=== PATIENT | male | born 1980 | race Caucasian/White ===

== ENCOUNTER 2025-08-29 22:12 | Emergency (ER) | payer BC, SELFPAY ==
--- OUTSIDE RECORDS SUMMARY | 2002-07-15 03:00 | XMS_ITS | Continuity of Care Document ---
Author Organization [facility] Address [address] [facility] [address] [place] [address] Phone Care Team Providers Care Corporate Legal Intern Name Role Phone Zenon Meyer DO Unavailable Unavailable Advance Directives Directive Yes / No Effective Date File Name No Information Encounters Encounter Description Practice Location Reason(s) For Visit Diagnoses Date Provider Providers Copied on Encounter [facility], [address], [place], [place], [id number], tel:[phone] [facility] No Information 2 Mitch Kowalski. [address] [place], [address], . tel: [phone] Referring Provider: Tyrell Mosley OD, [address] [place], [address]. tel:[phone] Family History Family Member Type Diagnosis Age At Onset No Information Payers Payer name Insurance type Covered libertarian ID Authoriza tion(s) No Information Social History Type Description Quantity Date Captured Comments Sex Male Smoking Status No Information Chief Complaint And Reason For Visit No Information Reason For Referral Reason For Referral No Information History Of Present Illness Encounter Date Complaint History Of Prese nt Illness No Information Functional Status Date Functional Assessmen t No Information Instructions Date Instruction Additional Infor mation No Information Assessments Type Assessment Date No Information Patient Care Teams Name Effective Dates (start - stop) Status Members No Information
--- OUTSIDE RECORDS SUMMARY | 2017-09-10 04:20 | XMS_ITS | Continuity of Care Document ---
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 Name Role Phone Prashant BUI, Cady Unavailable Unavailabl e Medications Medication Instructions Dosage Effective Dates (start - stop) Status Comments Patanase 0.6 % nasal spray spray 2 spray by intranasal route 2 times every day in each nostril - Active Any 180 mg tablet take 1 tablet (180 MG) by oral route every day - Active Procedures Procedure Date OFFICE/OUTPATIENT VISIT EST OFFICE/OUTPATIENT VISIT EST Advance Directives Directive Yes / No Effective Date File Name No Information Encounters Encounter Description Practice Location Reason(s) For Visit Diagnoses Date Provider Providers Copied on Encounter [facility], [address], [place], [address], tel:[phone] [facility] No Information 7 Prashant Hamsa. [address], [place], [place], [id number]. tel:[phone] [facility], [address], [place], [address], [place] tel:[phone] [facility] No Information 4 Prashant Hamsa. [address], [place], [place], [id number]. tel:[phone] OFFICE/OUTPAT IENT VISIT EST [facility], [address], [place], [address], [place] tel:[phone] [facility] Follow Up of for food allergies (chief complaint) Urinary frequency 4 Prashant Hamsa. [address], [place], [place], [id number]. tel:[phone] OFFICE/OUTPAT IENT VISIT EST [facility], [address] [facility] [address], [place], [address], [place] tel:[phone] [facility] follow up (chief complaint) Other adverse food reactions, not elsewhere classified 2 Prashant Hamsa. [address] [facility] [address], [place], [place], [id number]. tel:[phone] [facility], [address] [facility] [address], [place], [address], tel:[phone] [facility] food allergies (chief complaint) Other adverse food reactions, not elsewhere classified 2 Prashant Hamsa. [address], [place], [place], [id number]. tel:[phone] Family History Family Member Type Diagnosis Age At Onset No Information Payers Payer name Insurance type Covered green party ID Authoriza tion(s) No Information Social History Type Description Quantity Date Captured Comments Sex Male Smoking Status No Information Chief Complaint And Reason For Visit No Information Reason For Referral Reason For Referral No Information History Of Present Illness Encounter Date Complaint History Of Prese nt Illness Follow Up of for food allergies Gary is here for a very different issu, he has stopped dairy and nut , has not eaten dairy and consumes soy and almond milk is fine, cannot eat physically cannot eat nuts -one year ago, he started having bladder issues -he has frequency and urgency ,he saw an urologist- meds did not help, he had dry mouth - vesicare and similar meds did not help at all, he is undergoing physical therapy , for the past 3 months , that has helped some ,he still has frequent urination , control is better,he has no nocturia , he feels it is worse on mondays and is not sure if it is stress, -he drinks -2 beers on a week end , not every week end- he does a lot of cycling ,he drinks a lot of water while cycling , - sexually he has no issues - he does not drink caffeine or soda- water , gatorade , and nuun tablets which have electorlytes in them, he eats mozerella cheese and gets a little - gas GI is finenot constipated spine is not an issue- he etsa very little salt in his diet -He tried a glutean free diet and that did not help He takes no supplements He takes any Functional Status Date Functional Assessmen t No Information Instructions Date Instruction Additional Infor mation No Information Assessments Type Assessment Date No Information Patient Care Teams Name Effective Dates (start - stop) Status Members No Information
[2025-08-29] VITALS (11 sets, daily range): BP systolic 105–123; BP diastolic 43–61; PULSE 49–73; RESP 16–23; TEMP 36.7; O2SAT 100
--- NOTE | ~2025-08-29 | XR_ITS ---
Examination: XR chest 2V Clinical History: syncope Comparison: None Technique: PA and Lateral Findings: Cardiomediastinal silhouette normal size and configuration. Lungs clear. No acute bony abnormality. IMPRESSION: 1. No acute cardiopulmonary findings. Reviewed, dictated and finalized at location R.
--- NOTE | ~2025-08-29 | CT_ITS ---
EXAMINATION: CT brain wo con DATE: 08/29/2025 22:29 INDICATION: Syncope TECHNIQUE: Computed tomography (CT) of the head was performed without intravenous contrast. Sagittal and coronal reconstructions were performed. The mA was adjusted according to patient size. Iterative reconstruction technique was employed. The dose-length product was 681.00 mGy-cm. COMPARISON: None FINDINGS: No acute intracranial hemorrhage, acute infarction or abnormal extra axial fluid collection. Ventricles are normal and symmetric. No mass/mass effect. The orbits, paranasal sinuses and mastoid air cells are normal. IMPRESSION: 1. Normal head CT. Reviewed, dictated and finalized at location A. IMPRESSION: 1. Normal head CT.
--- NOTE | 2025-08-29 22:16 | ECG_ITS ---
Test Date: 2025-08-29 22:20:56 Measurements Intervals Henderson Rate: 51 P: 58 OR: 175 QRS: 12 QRSD: 82 T: 33 QT: 437 QTc: 404 Interpretive Statements SINUS BRADYCARDIA POSSIBLE LEFT ATRIAL ENLARGEMENT [-0.1mV P WAVE IN V1/V2] No previous ECG available for comparison Electronically Signed On 08-29-2025 22:24:17 CDT by Bailey Melendez M.D.
[2025-08-29] MEDS: LACTATED RINGERS 1,000 ML 999 ML IV CONT (22:41)
--- OUTSIDE RECORDS SUMMARY | 2025-08-29 22:43 | XMS_ITS | Clinical Summary ---
Author Organization [facility] Address [address] [place] [address] Care Team Providers Care Division Operations Manager Name Role Phone Saira Marcum MD Primary Care Provider Jeovanny Hooker DO Unavailable Allergies Active Allergy Reactions Criticality Noted Date Comments Dairy - All Forms And Ingredients Stomach upset Low 04/13/2024 Tree Pollen-Shagbark Hamblen Unknown 024 Medications escitalopram (LEXAPRO) 10 mg tablet Take 1 tablet (10 mg total) by mouth daily 12/01/2022 Active desmopressin (DDAVP) 0.1 mg tablet Take 1 tablet (100 mcg total) by mouth 3 (three) times a day 05/31/2023 Active Active Problems Problem Noted Date Diagnosed Date Hyperlipidemia 10/28/2022 Overactive bladder 10/28/2022 Increased frequency of urination 06/09/2014 Urinary urgency 06/09/2014 Headache 12/31/2013 Resolved Problems Problem Noted Date Diagnosed Date Resolved Date Ischial bursitis 09/03/2023 04/13/2024 Gastroesophageal reflux disease 09/02/2023 04/13/2024 Heartburn 04/27/2023 04/13/2024 Sleep disorder 09/24/2022 04/13/2024 Lesion of face 08/06/2022 04/13/2024 Posterior rhinorrhea 07/29/2022 024 Acute sinusitis 12/31/2013 04/13/2024 Immunizations Immunization Administration Dates Next Due Influenza, Quadrivalent, Laury l Culture-based MDCK, Preservative Free, Antibiotic Free, Intramuscular 09/21/2017 Influenza, Quadrivalent, Spl it, Preservative Free, Intramuscular 10/27/2020,09/27/2015 Surgical History Surgery Date Site/Laterality Comments EYE SURGERY took baseball to eye and had double vision. Needs corrected surgery. in 6 grade NASAL SEPTUM SURGERY for crooked septum Medical History Medical History Date Comments Personal history of other sp ecified conditions History of urinary frequency - (Added by TW Conv) Urgency of urination Urinary urg ency - (Added by TW Conv) Stress Chronic headaches Chickenpox Family History Medical History Relation Name Comments No Known Problems Father No Known Problems Mother Skin cancer Other Colon cancer Neg Hx Prostate cancer Neg Hx Relation Name Status Comments Father Mother Other Social History Tobacco Use Types Packs/Day Years Used Date Smoking Tobacco: Never Cigarettes Smokeless Tobacco: Never Tobacco Cessation:Counseling Given: Not Answered PHQ-2 Answer Date Recorded PHQ-2 Total Score (If total score is 3 or more points, staff should administer the PHQ-9) 0 04/13/2024 Sex and Gender Information Value Date Recorded Sex Assigned at Not on file Legal Sex Male 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 Gender Identity Not on file Sexual Orientation Not on file Obstetrics History Last Filed Vital Signs Vital Sign Reading Time Taken Comments Blood Pressure 104/67 11/10/2024 2:07 PM FORMING MACHINE UPKEEP MECHANIC HELPER Pulse 89 11/10/2024 2:07 PM FORMING MACHINE UPKEEP MECHANIC HELPER Temperature 36.6 C (97.8 F) 11/10/2024 2:07 PM FORMING MACHINE UPKEEP MECHANIC HELPER Respiratory Rate 18 11/10/2024 2:07 PM FORMING MACHINE UPKEEP MECHANIC HELPER Oxygen Saturation 99% 11/10/2024 2:07 PM FORMING MACHINE UPKEEP MECHANIC HELPER Inhaled Oxygen Concentration - - Weight 90.6 kg (199 lb 11.2 oz) 11/10/2024 2:07 PM FORMING MACHINE UPKEEP MECHANIC HELPER Height 177.8 cm (5' 10) 11/10/2024 2:07 PM FORMING MACHINE UPKEEP MECHANIC HELPER Body Mass Index 28.65 11/10/2024 2:07 PM FORMING MACHINE UPKEEP MECHANIC HELPER Plan of Treatment Health Maintenance Due Date Last Done Comments Colon Cancer Screening-Colonoscopy 1980 DTaP/Tdap/Td Vaccine (1 - Tdap) 1991 Hepatitis B Screening 1998 HPV Vaccines (1 - 3-dose SCD M series) 2007 Depression Screening 04/13/2025 04/13/2024 Regular Well Visit/Exam 18-64 04/13/2025 04/13/2024 Covid-19 Vaccine (2024-2 6 season) 2025 04/22/2022, 09/03/2021, 08/13/2021 Influenza Vaccine (#1) 2025 , 09/21/2017, 09/27/2015 Hepatitis C Screening Completed 08/16/2024 Pneumococcal vaccine <65 Aged Out No longer eligible based on patient's age to complete this topic Procedures Procedure Name Priority Date/Time Associated Diagnosis Comments HEPATITIS C ANTIBODY Routine 08/16/2024 9:12 AM CDT Encounter for hepatitis C screening test for low risk patient Routine general medical examination at a health care facility from Last 3 Months or Most Recently Relevant to Health Maintenance Results * Hepatitis C antibody Blood (08/16/2024 9:12 AM CDT) Hep C Ab Non Reactive Non Reactive [facility] - 01 Comment: HCV antibody alone does not differentiate between previously resolved infection and active infection. Equivocal and Reactive HCV antibody results should be followed up with an HCV RNA test to support the diagnosis of active HCV infection. Blood 08/16/2024 9:12 AM CDT 08/16/2024 Narrative [facility] - 08/17/2024 5:08 AM CDT Performed at: [address] [place] [id number] Foot Specialist: Gabriel Henry PhD, Phone: [phone] us Saira Marcum MD LAB MICROBIOLOGY - GEN ERAL ORDERABLES Final Result [facility] - 01 from Last 3 Months or Most Recently Relevant to Health Maintenance Insurance [employer] [facility] Care Teams Division Operations Manager Relationship Specialty Start Date End Date Saira Marcum MD PCP - General Family Medicine 04/13/24 Jeovanny Hooker DO [address] [place] [id number] Referring Physician Internal Medicine 04/13/24
--- OUTSIDE RECORDS SUMMARY | 2025-08-29 22:44 | XMS_ITS | Data Portability ---
Author Organization [facility], Main Office Address [address] [place] [address] Assessment No assessment recorded. Plan of Treatment Reminders Order Date Submit Date Provider Last Modified By Organization Details Last Modified Time Details Appointments None recorded. Lab None recorded. Referral None recorded. Procedures None recorded. Surgeries None recorded. Imaging None recorded. Medication Orders Medrol (Paulo) 4 mg tablets in a dose pack 023 023 [id number], [address] [place], [place], [id number], 3 15:56:26 Patient TargetsNo targets recorded. Patient InstructionsNo instructions recorded. Reason for Referral None Reported. Results Created Date Observation Date Name Description Value Unit Range Abnormal Flag Note LastModifiedBy Organization Detail LastModifiedTime 01/05/20 22 01/06/2022 PSA (SERI AL MONIT OR) prostate specific Ag 0.5 NG/mL 0.0-4. 0 Curtis ECLIA metho dolog y. Accor molly to the Ameri can [employer] g[employer] iatio n, Serum PSA shoul d decre ase and remai n at undet ectab le level s after radic al prost atect elizabet. The AUA defin es bioch emica l recur rence as an initi al PSA value 0.2 ng/mL or great er follo wed by a subse quent confi rmato ry PSA value 0.2 ng/mL or great er. Value s obtai malaika with diffe rent assay metho ds or kits canno t be used inter moy eably . Resul ts canno t be inter prete d as absol vanessa evide nce of the prese nce or absen ce of christiano pak se. Not Available [facility] ([facility]) [address] [facility], [place], [address], 01/08/2022 20:08:46 01/05/20 22 01/07/2022 PSA (SERI AL MONIT OR) pdf . Not Available [facility] ([facility]) [address] [facility], [place], [address], 01/08/2022 20:08:46 01/05/20 22 01/08/2022 A1C W/GLY COMAR K(R) REFLE X Hb A1C diabetic assessment 5.5 %Hb Note: A refle x test was order ed on this speci men. If A1c resul ts are betwe en a value of 6.0 to 8.0 (incl uding 6.0 and 8.0), Glyco Wily testi ng is perfo rmed. Glyco Wily refle cts post prand ial gluco se spike s from the past 2 weeks , where as A1c refle cts avera ge glyce misbah contr ol over the past 3 month s. Refer ence Range : Federica l: <5.7 Incre ased risk for diabe hayden: 5.7 - 6.4 Ongoi ng Hyper glyce conor: >6.4 Glyce misbah contr ol for adult s with diabe hayden: <7.0 (ADA) Not Available [facility] [address] [place], [address], 01/08/2022 20:08:45 01/05/20 22 01/08/2022 A1C W/GLY COMAR K(R) REFLE X estimated average glucose 111 mg/dL Not Available [facility] [address] [facility], [place], [address], 01/08/2022 20:08:45 01/05/20 22 01/08/2022 A1C W/GLY COMAR K(R) REFLE X glycomark(R) (1,5 Ag) tnp ug/mL Testi ng Not Indic ated Refle x not perfo rmed Glyco Wily( TM) is inten ded for use with manag ing glyce misbah contr ol in diabe tic patie nts. A low resul t corre spond s to high gluco se peaks . 1, 5-AG blood level s can be affec selina by clini jeremie condi tions or medic ation s. Pleas e refer to the direc tory of servi gopal or labco rp websi te test menu for detai led list of limit ation s. Not Available [facility] [address] [place], [address], 01/08/2022 20:08:45 01/05/20 22 01/06/2022 UA/M W/RFL X CULTU REFAVIAN NE specific gravity 1.010 1.005- 1.030 Not Available [facility] ([facility]) [address] [place], [address], 01/08/2022 20:08:45 01/05/20 22 01/06/2022 UA/M W/RFL X CULTU RE ROUTChristy NE pH 8.0 5.0-7. 5 above high normal Not Available [facility] ([facility]) [address] [place], [address], 01/08/2022 20:08:45 01/05/20 22 01/06/2022 UA/M W/RFL X CULTU REFAVIAN NE urine-color yellow yellow Not Available [facility] ([facility]) [address] [place], [address], 01/08/2022 20:08:45 01/05/20 22 01/06/2022 UA/M W/RFL X CULTU REFAVIAN NE appearance clear clear Not Available [facility] ([facility]) [address] [place], [address], 01/08/2022 20:08:45 01/05/20 22 01/06/2022 UA/M W/RFL X CULTU RE, ROUTI NE WBC esterase negati ve negati ve Not Available [facility] ([facility]) [address] [place], [address], 01/08/2022 20:08:45 01/05/20 22 01/06/2022 UA/M W/RFL X CULTU RE, ROUTI NE protein negati ve negati ve/tra ce Not Available [facility] ([facility]) [address] [place], [address], 01/08/2022 20:08:45 01/05/20 22 01/06/2022 UA/M W/RFL X CULTU RE, ROUTI NE glucose negati ve negati ve Not Available [facility] ([facility]) [address] [place], [address], 01/08/2022 20:08:45 01/05/20 22 01/06/2022 UA/M W/RFL X CULTU RE, ROUTI NE ketones negati ve negati ve Not Available [facility] ([facility]) [address] [place], [address], 01/08/2022 20:08:45 01/05/20 22 01/06/2022 UA/M W/RFL X CULTU RE, ROUTI NE occult blood negati ve negati ve Not Available [facility] ([facility]) [address] [place], [address], 01/08/2022 20:08:45 01/05/20 22 01/06/2022 UA/M W/RFL X CULTU RE, ROUTI NE bilirubin negati ve negati ve Not Available [facility] ([facility]) [address] [place], [address], 01/08/2022 20:08:45 01/05/20 22 01/06/2022 UA/M W/RFL X CULTU RE, ROUTI NE urobilinogen ,semi-qn 0.2 mg/dL 0.2-1. 0 Not Available [facility] ([facility]) [address] [facility], [place], [address], 01/08/2022 20:08:45 01/05/20 22 01/06/2022 UA/M W/RFL X CULTU RE, ROUTI NE nitrite, urine negati ve negati ve Not Available [facility] ([facility]) [address] [facility], [place], [address], 01/08/2022 20:08:45 01/05/20 22 01/06/2022 UA/M W/RFL X CULTU RE, ROUTI NE microscopic examination commen t Micro scopi c follo ws if indic ated. Not Available [facility] ([facility]) [address] [facility], [place], [address], 01/08/2022 20:08:45 01/05/20 22 01/06/2022 UA/M W/RFL X CULTU RE, ROUTI NE microscopic examination see below: Micro scopi c was indic ated and was perfo rmed. Not Available [facility] ([facility]) [address] [facility], [place], [address], 01/08/2022 20:08:45 01/05/20 22 01/06/2022 UA/M W/RFL X CULTU RE, ROUTI NE WBC none seen /hpf 0 - 5 Not Available [facility] ([facility]) [address] [facility], [place], [address], 01/08/2022 20:08:45 01/05/20 22 01/06/2022 UA/M W/RFL X CULTU RE, ROUTI NE RBC none seen /hpf 0 - 2 Not Available [facility] ([facility]) [address] [facility], [place], [address], 01/08/2022 20:08:45 01/05/20 22 01/06/2022 UA/M W/RFL X CULTU RE, ROUTI NE epithelial cells (non renal) none seen /hpf 0 - 10 Not Available [facility] ([facility]) [address] [facility], [place], [address], 01/08/2022 20:08:45 01/05/20 22 01/06/2022 UA/M W/RFL X CULTU RE, ROUTI NE epithelial cells (renal) inpatient care manager rn Not Available [facility] ([facility]) [address] [facility], [place], [address], 01/08/2022 20:08:45 01/05/20 22 01/06/2022 UA/M W/RFL X CULTU RE, ROUTI NE casts none seen /lpf none seen Not Available [facility] ([facility]) [address] [facility], [place], [address], 01/08/2022 20:08:45 01/05/20 22 01/06/2022 UA/M W/RFL X CULTU RE, ROUTI NE cast type inpatient care manager rn Not Available [facility] ([facility]) [address] [facility], [place], [address], 01/08/2022 20:08:45 01/05/20 22 01/06/2022 UA/M W/RFL X CULTU RE, ROUTI NE crystals inpatient care manager rn Not Available [facility] ([facility]) [address] [facility], [place], [address], 01/08/2022 20:08:45 01/05/20 22 01/06/2022 UA/M W/RFL X CULTU RE, ROUTI NE crystal type inpatient care manager rn Not Available [facility]) [address] [facility], [place], [address], 01/08/2022 20:08:45 01/05/20 22 01/06/2022 UA/M W/RFL X CULTU RE, ROUTI NE mucus threads inpatient care manager rn Not Available [facility] ([facility]) [address] [facility], [place], [address], 01/08/2022 20:08:45 01/05/20 22 01/06/2022 UA/M W/RFL X CULTU RE, ROUTI NE bacteria none seen none seen/f ew Not Available [facility] ([facility]) [address] [facility], [place], [address], 01/08/2022 20:08:45 01/05/20 22 01/06/2022 UA/M W/RFL X CULTU RE, ROUTI NE yeast inpatient care manager rn Not Available [facility] ([facility]) [address] [facility], [place], [address], 01/08/2022 20:08:45 01/05/20 22 01/06/2022 UA/M W/RFL X CULTU RE, ROUTI NE trichomonas inpatient care manager rn Not Available [facility] ([facility]) [address] [facility], [place], [address], 01/08/2022 20:08:45 01/05/20 22 01/06/2022 UA/M W/RFL X CULTU RE, ROUTI NE comment inpatient care manager rn Not Available [facility] ([facility]) [address] [facility], [place], [address], 01/08/2022 20:08:45 01/05/20 22 01/06/2022 UA/M W/RFL X CULTU RE, ROUTI NE urinalysis reflex commen t This speci men will not refle x to a Urine Cultu re. Not Available [facility] ([facility]) [address] [facility], [place], [address], 01/08/2022 20:08:45 01/05/20 22 01/06/2022 CMP14 +4AC glucose 91 mg/dL 65-99 Not Available [facility] ([facility]) [address] [facility], [place], [address], 01/08/2022 20:08:44 01/05/20 22 01/06/2022 CMP14 +4AC BUN 12 mg/dL 6-24 Not Available [facility] ([facility]) [address] [place], [address], 01/08/2022 20:08:44 01/05/20 22 01/06/2022 CMP14 +4AC creatinine 1.17 mg/dL 0.76-1 .27 Not Available [facility] ([facility]) [address] [place], [address], 01/08/2022 20:08:44 01/05/20 22 01/06/2022 CMP14 +4AC eGFR if nonafricn AM 77 mL/mi n/1.7 3 >59 Not Available [facility] ([facility]) [address] [place], [address], 01/08/2022 20:08:44 01/05/20 22 01/06/2022 CMP14 +4AC eGFR if africn AM 89 mL/mi n/1.7 3 >59 In accor dance with recom menda tions from the NKF-A SN Task force , Mat rp is in the proce ss of updat ing its eGFR calcu latio n to the 2020 CKD-E PI creat inine equat ion that estim ates kidne y funct ion witho ut a race varia ble. Not Available [facility] ([facility]) [address] [place], [address], 01/08/2022 20:08:44 01/05/20 22 01/06/2022 CMP14 +4AC sodium 139 mmol/ L 134-14 4 Not Available [facility] ([facility]) [address] [place], [address], 01/08/2022 20:08:44 01/05/20 22 01/06/2022 CMP14 +4AC potassium 4.7 mmol/ L 3.5-5. 2 Not Available [facility] ([facility]) [address] [place], [address], 01/08/2022 20:08:44 01/05/20 22 01/06/2022 CMP14 +4AC chloride 102 mmol/ L 96-106 Not Available [facility] ([facility]) [address] [facility], [place], [address], 01/08/2022 20:08:44 01/05/20 22 01/06/2022 CMP14 +4AC carbon dioxide, total 24 mmol/ L 20-29 Not Available [facility] ([facility]) [address] [facility] [place], [address], 01/08/2022 20:08:44 01/05/20 22 01/06/2022 CMP14 +4AC calcium 9.3 mg/dL 8.7-10 .2 Not Available [facility] ([facility]) [address] [place], [address], 01/08/2022 20:08:44 01/05/20 22 01/06/2022 CMP14 +4AC phosphorus 4.0 mg/dL 2.8-4. 1 Not Available [facility] ([facility]) [address] [facility], [place], [address], 01/08/2022 20:08:44 01/05/20 22 01/06/2022 CMP14 +4AC protein, total 6.7 g/dL 6.0-8. 5 Not Available [facility] ([facility]) [address] [place], [address], 01/08/2022 20:08:44 01/05/20 22 01/06/2022 CMP14 +4AC albumin 4.5 g/dL 4.0-5. 0 Not Available [facility] ([facility]) [address] [facility], [place], [address], 01/08/2022 20:08:44 01/05/20 22 01/06/2022 CMP14 +4AC bilirubin, total 0.8 mg/dL 0.0-1. 2 Not Available [facility] ([facility]) [address] [place], [address], 01/08/2022 20:08:44 01/05/20 22 01/06/2022 CMP14 +4AC alkaline phosphatase 52 IU/L 44-121 Not Available [facility]) [address] [place], [address], 01/08/2022 20:08:44 01/05/20 22 01/06/2022 CMP14 +4AC LDH 164 IU/L 121-22 4 Not Available [facility] ([facility]) [address] [place], [address], 01/08/2022 20:08:44 01/05/20 22 01/06/2022 CMP14 +4AC AST (SGOT) 19 IU/L 0-40 Not Available [facility] ([facility]) [address] [place], [address], 01/08/2022 20:08:44 01/05/20 22 01/06/2022 CMP14 +4AC ALT (SGPT) 12 IU/L 0-44 Not Available [facility] ([facility]) [address] [place], [address], 01/08/2022 20:08:44 01/05/20 22 01/06/2022 CMP14 +4AC GGT 12 IU/L 0-65 Not Available [facility] ([facility]) [address] [place], [address], 01/08/2022 20:08:44 01/05/20 22 01/06/2022 CBC WITH DIFFE RENTI AL/PL ATELE T WBC 4.2 x10e3 /uL 3.4-10 .8 Not Available [facility] ([facility]) [address] [place], [address], 01/08/2022 20:08:44 01/05/20 22 01/06/2022 CBC WITH DIFFE RENTI AL/PL ATELE T RBC 4.71 x10e6 /uL 4.14-5 .80 Not Available [facility] ([facility]) [address] [place], [address], 01/08/2022 20:08:44 01/05/20 22 01/06/2022 CBC WITH DIFFE RENTI AL/PL ATELE T hemoglobin 14.8 g/dL 13.0-1 7.7 Not Available [facility] ([facility]) [address] [place], [address], 01/08/2022 20:08:44 01/05/20 22 01/06/2022 CBC WITH DIFFE RENTI AL/PL ATELE T hematocrit 43.5 % 37.5-5 1.0 Not Available [facility] ([facility]) [address] [facility], [place], [address], 01/08/2022 20:08:44 01/05/20 22 01/06/2022 CBC WITH DIFFE RENTI AL/PL ATELE T MCV 92 fL 79-97 Not Available [facility] ([facility]) [address] [place], [address], 01/08/2022 20:08:44 01/05/20 22 01/06/2022 CBC WITH DIFFE RENTI AL/PL ATELE T MCH 31.4 pg 26.6-3 3.0 Not Available [facility] ([facility]) [address] [place], [address], 01/08/2022 20:08:44 01/05/20 22 01/06/2022 CBC WITH DIFFE RENTI AL/PL ATELE T MCHC 34.0 g/dL 31.5-3 5.7 Not Available [facility] ([facility]) [address] [place], [address], 01/08/2022 20:08:44 01/05/20 22 01/06/2022 CBC WITH DIFFE RENTI AL/PL ATELE T RDW 12.5 % 11.6-1 5.4 Not Available [facility] ([facility]) [address] [facility], [place], [address], 01/08/2022 20:08:44 01/05/20 22 01/06/2022 CBC WITH DIFFE RENTI AL/PL ATELE T platelets 317 x10e3 /uL 150-45 0 Not Available [facility] ([facility]) [address] [facility], [place], [address], 01/08/2022 20:08:44 01/05/20 22 01/06/2022 CBC WITH DIFFE RENTI AL/PL ATELE T neutrophils 56 % not estab. Not Available [facility] ([facility]) [address] [facility], [place], [address], 01/08/2022 20:08:44 01/05/20 22 01/06/2022 CBC WITH DIFFE RENTI AL/PL ATELE T lymphs 28 % not estab. Not Available [facility] ([facility]) [address] [facility], [place], [address], 01/08/2022 20:08:44 01/05/20 22 01/06/2022 CBC WITH DIFFE RENTI AL/PL ATELE T monocytes 10 % not estab. Not Available [facility] ([facility]) [address] [facility], [place], [address], 01/08/2022 20:08:44 01/05/20 22 01/06/2022 CBC WITH DIFFE RENTI AL/PL ATELE T eos 4 % not estab. Not Available [facility] ([facility]) [address] [facility], [place], [address], 01/08/2022 20:08:44 01/05/20 22 01/06/2022 CBC WITH DIFFE RENTI AL/PL ATELE T basos 2 % not estab. Not Available [facility] ([facility]) [address] [place], [address], 01/08/2022 20:08:44 01/05/20 22 01/06/2022 CBC WITH DIFFE RENTI AL/PL ATELE T immature cells inpatient care manager rn Not Available [facility] ([facility]) [address] [facility], [place], [address], 01/08/2022 20:08:44 01/05/20 22 01/06/2022 CBC WITH DIFFE RENTI AL/PL ATELE T neutrophils (absolute) 2.4 x10e3 /uL 1.4-7. 0 Not Available [facility] ([facility]) [address] [facility], [place], [address], 01/08/2022 20:08:44 01/05/20 22 01/06/2022 CBC WITH DIFFE RENTI AL/PL ATELE T lymphs (absolute) 1.2 x10e3 /uL 0.7-3. 1 Not Available [facility] ([facility]) [address] [place], [address], 01/08/2022 20:08:44 01/05/20 22 01/06/2022 CBC WITH DIFFE RENTI AL/PL ATELE T monocytes(ab solute) 0.4 x10e3 /uL 0.1-0. 9 Not Available [facility] ([facility]) [address] [place], [address], 01/08/2022 20:08:44 01/05/20 22 01/06/2022 CBC WITH DIFFE RENTI AL/PL ATELE T eos (absolute) 0.2 x10e3 /uL 0.0-0. 4 Not Available [facility] ([facility]) [address] [place], [address], 01/08/2022 20:08:44 01/05/20 22 01/06/2022 CBC WITH DIFFE RENTI AL/PL ATELE T baso (absolute) 0.1 x10e3 /uL 0.0-0. 2 Not Available [facility] ([facility]) [address] [facility], [place], [address], 01/08/2022 20:08:44 01/05/20 22 01/06/2022 CBC WITH DIFFE RENTI AL/PL ATELE T immature granulocytes 0 % not estab. Not Available [facility] ([facility]) [address] [facility], [place], [address], 01/08/2022 20:08:44 01/05/20 22 01/06/2022 CBC WITH DIFFE RENTI AL/PL ATELE T immature grans (abs) 0.0 x10e3 /uL 0.0-0. 1 Not Available [facility] ([facility]) [address] [facility], [place], [address], 01/08/2022 20:08:44 01/05/20 22 01/06/2022 CBC WITH DIFFE RENTI AL/PL ATELE T NRBC inpatient care manager rn Not Available [facility] ([facility]) [address] [place], [address], 01/08/2022 20:08:44 01/05/20 22 01/06/2022 CBC WITH DIFFE RENTI AL/PL ATELE T hematology comments: inpatient care manager rn Not Available [facility] ([facility]) [address] [place], [address], 01/08/2022 20:08:44 01/05/20 22 01/06/2022 LP+LD L DIREC T+DLD L/HDL RATIO cholesterol, total 196 mg/dL 100-19 9 Not Available [facility] ([facility]) [address] [place], [address], 01/08/2022 20:08:43 01/05/20 22 01/06/2022 LP+LD L DIREC T+DLD L/HDL RATIO triglyceride s 84 mg/dL 0-149 Not Available [facility] ([facility]) [address] [place], [address], 01/08/2022 20:08:43 01/05/20 22 01/06/2022 LP+LD L DIREC T+DLD L/HDL RATIO HDL cholesterol 48 mg/dL >39 Not Available [facility] ([facility]) [address] [place], [address], 01/08/2022 20:08:43 01/05/20 22 01/06/2022 LP+LD L DIREC T+DLD L/HDL RATIO VLDL cholesterol jeremie 15 mg/dL 5-40 Not Available [facility] ([facility]) [address] [place], [address], 01/08/2022 20:08:43 01/05/20 22 01/06/2022 LP+LD L DIREC T+DLD L/HDL RATIO LDL chol calc (nih) 133 mg/dL 0-99 above high normal Not Available [facility] ([facility]) [address] [place], [address], 01/08/2022 20:08:43 01/05/20 22 01/06/2022 LP+LD L DIREC T+DLD L/HDL RATIO comment: inpatient care manager rn Not Available [facility] ([facility]) [address] [place], [address], 01/08/2022 20:08:43 01/05/20 22 01/06/2022 LP+LD L DIREC T+DLD L/HDL RATIO LDL chol. (direct) 131 mg/dL 0-99 above high normal Not Available [facility] ([facility]) [address] [place], [address], 01/08/2022 20:08:43 01/05/20 22 01/06/2022 LP+LD L DIREC T+DLD L/HDL RATIO LDL (dir.)/HDL ratio 2.7 ratio 0.0-3. 6 LDL/H DL Men Women 1/2 Avg.R isk 1.0 1.5 Avg.R isk 3.6 3.2 2X Avg.R isk 6.3 5.0 3X Avg.R isk 8.0 6.1 Not Available [facility] ([facility]) [address] [facility], [place], [address], 01/08/2022 20:08:43 07/29/20 22 07/29/2022 rapid strep group A, throa t STREP A negati ve Not Available [id number] [place] [address], [place], [address], 07/29/2022 10:34:51 12/26/19 23 12/10/2022 home sleep study No observ ation record ed. [id number] [facility] [address], [place], [address], 01/30/2023 00:06:43 Result Notes None recorded. Problems Name Problem SNOMED Code Status Onset Date Resolution Date Notes Provider Name and Address Organization Details Recorded Time Acute sinusitis 19068922 Active 2021 Not Available [facility] 3 00:05:36 Acute pharyngitis 469447044 Active 2021 Not Available [facility] 3 00:05:36 Posterior rhinorrhea 61863806 Active 2021 Not Available [facility] 3 00:05:36 Lesion of face 109078517 Active 2021 Not Available [facility] 3 00:05:37 Sleep disorder 38568095 Active 2021 Not Available [facility] 3 00:05:36 Headache 12401949 Active 2021 Not Available [facility] 3 00:05:36 Hyperlipidemi a 19134389 Active 2021 NEWTON Montes null, [place] [facility] [place] [facility] 3 16:26:10 Overactive urinary bladder 280392180 Active 2021 Not Available [facility] 00:05:37 Heartburn 82568760 Active 2022 ADRIÁN Kim [address] [facility], [place] [address], [place], [address] , [facility] [employer] [facility] 3 21:21:19 Gastroesophag eal reflux disease 458432090 Active 2022 NEWTON Montes null, [facility] [employer] 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 3 15:56:16 Problem Notes None recorded. Procedures Surgical History Date Name Laterality Status Provider Name and Address Organization Details Recorded Time ENT Surgery completed NEWTON Montes [place] [facility] [place] [facility] 04/22/2023 16:16:19 other completed Not Available [facility] 01/2023 00:04:49 Eye Surgery completed Not Available [facility] 01/30/2023 00:04:49 Imaging Results None recorded. Procedure Notes None recorded. Medical Equipment None Reported. Allergies No known drug allergies Medications Name Sig Start Date Stop Date Status Note LastModified by Organization Details LastModified Time doxycycline hyclate 100 mg capsule TAKE 1 CAPSULE BY MOUTH TWICE DAILY EVERY DAY FOR 10 DAYS 07/26 completed Not Available Not Available Not Available azithromyci n 250 mg tablet TAKE 2 TABLETS (500 MG) BY ORAL ROUTE ONCE DAILY FOR 1 DAY THEN 1 TABLET (250 MG) BY ORAL ROUTE ONCE DAILY FOR 4 DAYS active Not Available Not Available No t Available liothyronin e 25 mcg tablet TAKE 1/2 TABLET BY MOUTH EVERY MORNING AND 1/2 TABLET EVERY DAY AT 3 PM 07/29 completed Not Available Not Available Not Available fluconazole 200 mg tablet TAKE 1 TABLET BY MOUTH EVERY DAY 10/28 completed Not Available Not Available Not Available ondansetron HCl 4 mg tablet TAKE 1 TO 2 TABLETS BY MOUTH EVERY 6 HOURS NEEDED FOR NAUSEA 04/22 completed Not Available Not Available Not Available prednisone 20 mg tablet TAKE 2 TABLETS BY MOUTH EVERY MORNING FOR 7 DAYS 07/26 completed Not Available Not Available Not Available sulfamethox azole 800 mg-trimetho prim 160 mg tablet TAKE 1 TABLET BY MOUTH TWICE DAILY 04/21 completed Not Available Not Available Not Available amoxicillin 875 mg tablet TAKE 1 TABLET BY MOUTH TWICE DAILY 04/21 completed Not Available Not Available Not Available pantoprazol e 40 mg tablet,maryanne yed release TAKE 1 TABLET BY MOUTH EVERY 12 HOURS FOR 14 DAYS active Not Available Not Available No t Available mupirocin 2 % topical ointment APPLY A SMALL AMOUNT TOPICALLY TO AFFECTED AREAS OF FACE/CHIN THREE TIMES DAILY active Not Available Not Available No t Available azelastine 137 mcg (0.1 %) nasal spray USE 1 TO 2 SPRAYS IN EACH NOSTRIL EVERY DAY 10/28 completed Not Available Not Available Not Available cefuroxime axetil 500 mg tablet Take 1 tablet every 12 hours by oral route. active Not Available Not Available No t Available methylpredn isolone 4 mg tablets in a dose pack FOLLOW PACKAGE DIRECTION S active Not Available Not Available No t Available fluticasone propionate 50 mcg/actuati on nasal spray,suspe nsion SHAKE LIQUID AND USE 1 TO 2 SPRAYS IN EACH NOSTRIL EVERY DAY 10/28 completed Not Available Not Available Not Available doxycycline hyclate 100 mg tablet TAKE 1 TABLET BY MOUTH TWICE DAILY 04/21 completed Not Available Not Available Not Available amoxicillin 875 mg-potassiu m clavulanate 125 mg tablet TAKE 1 TABLET BY MOUTH TWICE DAILY 10/29 completed Not Available Not Available Not Available desmopressi n 0.1 mg tablet TAKE 1 TABLET BY MOUTH THREE TIMES DAILY active Not Available Not Available No t Available escitalopra m 10 mg tablet TAKE 1 TABLET BY MOUTH EVERY DAY active Not Available Not Available No t Available escitalopra m 20 mg tablet TAKE 1 TABLET BY MOUTH DAILY 10/28 completed Not Available Not Available Not Available Any Allergy 04/22 completed Not Available Not Available Not Available ID NOW COVID-19 Test Kit TEST DIRECTED TODAY 04/21 completed Not Available Not Available Not Available Vitals Date Recorded Body height Body temperature Body mass index (BMI) Body weight Respiratory rate Oxygen saturation Oxygen saturation in Arterial blood by Pulse oximetry Heart rate Systolic And Diastolic Provider Name and Address Organization Details Last Updated DateTime 3 180.34 cm 98.4 [degF] 27.6 kg/m2 00048.2 9 g 16 /min 98 % 98 % 59 /min 110/72 mm[Hg] NEWTON Montes [facility] [employer] [facility] 3 16:16:54 Date Recorded Body mass index (BMI) Body height Oxygen saturation Oxygen saturation in Arterial blood by Pulse oximetry Heart rate Respiratory rate Body temperature Body weight Provider Name and Address Organization Details Last Updated DateTime 2 28.8 kg/m2 180.34 cm 97 % 97 % 58 /min 16 /min 97.8 [degF] 01162.7 5 g Not Available [facility] 3 00:05:04 Date Recorded Body height Body temperature Body mass index (BMI) Body weight Heart rate Oxygen saturation Oxygen saturation in Arterial blood by Pulse oximetry Systolic And Diastolic Provider Name and Address Organization Details Last Updated DateTime 3 180.34 cm 97.3 [degF] 27.5 kg/m2 12588.7 g 64 /min 98 % 98 % 118/70 mm[Hg] Zunilda Muller RN [facility] [employer] [facility] 3 15:26:18 Date Recorded Body height Oxygen saturation Oxygen saturation in Arterial blood by Pulse oximetry Heart rate Body temperature Body weight Systolic And Diastolic Provider Name and Address Organization Details Last Updated DateTime 2 180.34 cm 99 % 99 % 63 /min 99 [degF] 61262.4 7 g 118/66 mm[Hg] Not Available [facility] 3 00:05:03 Date Recorded Body mass index (BMI) Body height Oxygen saturation Oxygen saturation in Arterial blood by Pulse oximetry Heart rate Body temperature Body weight Systolic And Diastolic Provider Name and Address Organization Details Last Updated DateTime 1 27.7 kg/m2 180.34 cm 98 % 98 % 80 /min 97.8 [degF] 12292.4 4 g 110/70 mm[Hg] Not Available [facility] 3 00:05:03 Social History Question Answer Notes LastModified by Organizat ion Details LastModified Time Tobacco Smoking Status Never Smoker [place], [place] [facility] 09/03/2023 15:11:43 Do You Have An Advance Directive? Yes [id number] Information not available 01/30/2023 Do You Wear A Helmet When Biking? Yes [email or web address] Information not available 09/03/2023 What Is Your Level Of Caffeine Consumption? None [id number] Information not available 01/30/2023 In The 14 Days Before Symptom Onset, Have You Had Close Contact With A Laboratory-confirm ed COVID-19 While That Case Was Ill? No [email or web address] Information n ot available 09/03/2023 In The 14 Days Before Symptom Onset, Have You Had Close Contact With A Person Who Is Under Investigation For COVID-19 While That Person Was Ill? No [email or web address] Information not available 09/03/2023 What Type Of Diet Are You Following? REGULAR [id number] Information not available 01/30/2023 What Is The Highest Grade Or Level Of School You Have Completed Or The Highest Degree You Have Received? [id number] [email or web address] Information not available 09/03/2023 Have There Been Any Changes To Your Family Or Social Situation? No [email or web address] Information no t available 09/03/2023 Are There Any Guns Present In Your Home? Yes [email or web address] Information not available 09/03/2023 Do You Use Insect Repellent Routinely? Yes [email or web address] Information not available 09/03/2023 Have You Ever Been Counseled For Unhealthy Alcohol Use? No [email or web address] Information not available 09/03/2023 Do You Have Any Pets? Yes Information not available 09/03/2023 What Is Your Relationship Status? [id number] Information not available 01/30/2023 Do You Use Your Seat Belt Or Car Seat Routinely? Yes [email or web address] Information not available 09/03/2023 Do You Have Smoke And Carbon Monoxide Detectors In Your Home? Yes [email or web address] Information not available 09/03/2023 Are You Passively Exposed To Smoke? No [email or web address] Information no t available 09/03/2023 Are There Any Smokers In Your House? No [email or web address] Information not available 09/03/2023 Do You Use Sunscreen Routinely? Yes [email or web address] Information not available 09/03/2023 Has Tobacco Cessation Counseling Been Provided? No [email or web address] Information not available 09/03/2023 Have You Recently Traveled Abroad? No [email or web address] Information not available 09/03/2023 Do You Have Any Dietary Restrictions? No [email or web address] Information not available 09/03/2023 Sex: Male Functional Status Question Answer Note LastModified by Organizat ion Details LastModified Time Do you use any illicit or recreational drugs? No [email or web address] Information not available 09/03/2023 Do you or have you ever used any other forms of tobacco or nicotine? No [email or web address] Information not available 09/03/2023 What is your level of alcohol consumption? Occasional [id number] Information not available 01/30/2023 Are you currently employed? Yes [email or web address] Information not available 09/03/2023 What is your occupation? [employer] [email or web address] Information not available 09/03/2023 What is your exercise level? Moderate [id number] Information not available 01/30/2023 Mental Status Question Answer Note LastModified by Organization D etails LastModified Time Do you feel stressed (tense, restless, nervous, or anxious, or unable to sleep at night)? [id number] [email or web address] Information not available 09/03/2023 Family History Relationship Description Onset Age of this Age Resolved Age Notes LastModified by Organization Details LastModified Time Father No current problems or disability [id number] Not available 01/30/2023 00:04:50 Mother No current problems or disability [id number] Not available 01/30/2023 00:04:50 Medical History Condition Response HEADACHES/MIGRAINES Y URINARY/BLADDER/KIDNEY PROBLEMS Y Past Encounters Encounter ID Performer Location Encounter Start Date Encounter Closed Date Diagnosis/Indication Diagnosis SNOMED-CT Code Diagnosis ICD10 Code Diagnosis IMO Codes Diagnosis Note [id number] ADRIÁN Kim [facility] Internal [facility] [place] [address] [place] [address] 10/24/2021 00:00:00 10/26/2021 17:36:19 [id number] ADRIÁN Kim [facility] Internal [facility] [place] [address] [place] [address] 11/02/2021 00:00:00 11/28/2021 19:57:40 [id number] Jeovanny Schwartz MD [facility] Internal [facility] [place] [address] [place] [address] 07/29/2022 00:00:00 07/29/2022 10:46:58 [id number] ADRIÁN Kim [facility] Internal [facility] [place] [address] [place] [address] 10/29/2022 00:00:00 10/29/2022 12:09:34 [id number] ADRIÁN Kim [facility] Internal [facility] [place] [address] [place] [address] 04/22/2023 16:09:51 04/22/2023 16:41:42 Heartburn [id number] R12 continue 2 week course of pantoprazo le at this time. may stop after 14 days and see if symptoms remain resolved. 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 rest at this time. break from bike 1-2 weeks Health Concerns Section Related Observation LastModified by Organization Detai ls LastModified Time None Recorded Concern Status LastModified by Organization Details LastModified Time None Recorded Advance Directives Directive Y: Payers Insurance Date Sequence Insurance Name Policy Number Policy Castillo Covered Member ID Castillo Member ID Guarantor Name 10/01/2023 1 [place] 112 Gary Rivera [id number] Gary Rivera 08/29/2023 [facility] Gary Rivera SELF SELF Gary Rivera Notes Date Note Type Note Provider Name and Address Organization Details Recorded Time 04/22/20 23 text/htm l Reflux/GERDReported by PatientHPIFor context, patient reportsrelated to stressbut reportsnon-smoker,no drug/alcohol abuse,no drug alcohol withdrawal, andnot related to food/drink(he went to [facility] a couple weekends ago and they put him on a medication that he started last week.). For severity, patient reportsimprovingandwaking up at night. For duration, patient reportspresent <1 month. For onset/timing, patient reportsgone now. For alleviating factors, patient reportsmedication. For associated symptoms, patient reportsno frequent coughing,no feeling of fullness/mass in throat,no hoarseness,no food getting stuck,no belching/burping,no vomiting,not vomiting blood,no regurgitation,no shortness of breath,no chest pain,no heartburn,no difficulty swallowing,no pain when swallowing,no bad taste,no decreased appetite,no weight loss,no black/tarry stools,no fatigue, andno throat pain. For quality, (no pain now.). For aggravating factors, (stress).went to urgent care and given 2 weeks of PPI therapy ADRIÁN Kim [address], [place], [address], [employer] 04/27/2023 21:22:03 09/03/20 23 text/htm l Musculoskeletal SymptomsReported by PatientMusculoskeletal SymptomsFor hpi, patient reportsno previous injuries.pain in the sit bone area from riding high miles on bike. no fall or injury noted. wears padded bike shorts too. pt c/o sit bone pain ADRIÁN Kim [address], [place], [address], [employer] 09/30/2023 17:28:20
--- OUTSIDE RECORDS SUMMARY | 2025-08-29 22:44 | XMS_ITS | Clinical Summary ---
Author Organization [facility] Address [address] [place] [address] Care Team Providers Care Medical Administrative Assistant Name Role Phone Unavailable Primary Care Provider Unavailabl e Social History Tobacco Use Types Packs/Day Years Used Date Smoking Tobacco: Never Assessed Sex and Gender Information Value Date Recorded Sex Assigned at Not on file Legal Sex Male 1:19 PM CDT Gender Identity Not on file Sexual Orientation Not on file Plan of Treatment Health Maintenance Due Date Last Done Comments Pre-Diabetes and Diabetes Screening 1980 DTAP/TDAP/TD VACCINES (1 - Tdap) 1999 HEPATITIS B VACCINES (1 of 3 - 19+ 3-dose series) 1999 HPV VACCINES (1 - 3-dose SCDM series) 2007 COLORECTAL SCREENING 2025 Colorectal Cancer Screening 2025 FIT-DNA Q 3 years 2025 FIT/FOBT Q 1 year 2025 Flex Sig/CT Colonography Q 5 years 2025 INFLUENZA VACCINE (#1) 2025 0, 09/21/2017, 09/27/2015 Insurance [facility] [employer]ERAL
[2025-08-29 22:54] LABS: Hematocrit 40.5 % (42.0-52.0); Hemoglobin 13.3 g/dL (14.0-18.0); Immature Granulocyte Percent A 0.3 % (0-0.5); Lymphocytes Absolute Auto 1.91 K/mm3 (0.9-3.2); Mean Corpuscular HGB Conc 32.8 g/dl (32-36); Mean Corpuscular Hemoglobin 30.6 pg (26-34); Mean Corpuscular Volume 93.3 fl (80-100); Nucleated Red Blood Cells Absolute Auto 0.000 K/mm3 (0.0-0.012); Nucleated Red Blood Cells Perc 0.0 % (0.0-0.2); Platelet Count Result 290 k/mm3 (150-375); Red Blood Count 4.34 M/mm3 (4.6-6.20); White Blood Count 6.8 K/mm3 (4.5-10.0)
--- NOTE | 2025-08-29 22:54 | ED_ITS ---
HPI - Dizziness General Chief Complaint: Dizziness Stated Complaint: DIZZY, NEAR-SYNCOPE Time Seen by Provider: 08/29/25 22:16 History of Present Illness HPI Narrative: 45-year-old male with a past medical history including anxiety presenting to the emergency department today with feelings of lightheadedness, dizziness. States that he was not feeling well throughout the day and went to bed early. His woke him up from sleep dizzy for a take his nightly medications and he got up suddenly, felt the blood pressure from his face, felt diaphoretic blurry vision and dizzy and had to sit down. Did not lose consciousness but called EMS for concerns. Symptoms resolved and patient only is complaining of some pressure in his head that he states happens whenever he gets anxious. States he has a lot of stressors in his life which are not new. Denies any traumatic injuries. No chest pain, pressure, nausea, vomiting, headache, vision changes, abdominal pain, back pain, fever, chills. No shaking or seizure activity. No full loss of consciousness reported. He feels better after lying down the stretcher in getting some minimal fluids so far by EMS. Related Data Allergies Allergy/AdvReac Type Severity Reaction Status Date / Time No Known Drug Allergies Allergy Unknown Verified 06/07/20 12:58 Review of Systems 2 Review of Systems: As reviewed above in HPI [facility] Family History Family History Mother Patient's mother is in good health Father Patient's father is in good health Sibling Patient's brother is in good health Social History Social History Smoking status: Never smoker Second hand tobacco smoke exposure: No Alcohol intake: current Exam 2 Narrative: GENERAL: [Well-appearing, well-nourished, and in no acute distress.] HEAD: [Normocephalic, atraumatic.] EYES: [PERRLA and EOMI.] ENT: Nares clear, no rhinorrhea or epistaxis. Mucous membranes moist. NECK: Supple. CHEST: [Clear to auscultation. No respiratory distress.] HEART: [Regular rate and rhythm]. No murmur heard. [Normal peripheral pulses.] ABDOMEN: [Soft, nondistended], [nontender], [No rigidity or guarding] EXTREMITIES: Normal range of motion. [No edema.] SKIN: Warm, dry, no rash. NEURO: [No focal deficits]. Alert and oriented [x3.] PSYCH: [Normal mood and affect.] Course Vital Signs Vital signs: Vital Signs Temperature 36.7 C 08/29/25 22:07 Pulse Rate 49 L 08/29/25 22:07 Respiratory Rate 20 08/29/25 22:07 Blood Pressure 105/43 L 08/29/25 22:07 Pulse Oximetry 100 08/29/25 22:07 Oxygen Delivery Room Air 08/29/25 22:07 Temperature 36.7 C 08/29/25 22:07 Pulse Rate 70 08/30/25 02:42 Respiratory Rate 12 08/30/25 02:42 Blood Pressure 119/59 L 08/30/25 02:42 Pulse Oximetry 99 08/30/25 02:42 Oxygen Delivery Room Air 08/29/25 22:07 MDM - Dizziness MDM Narrative Medical decision making narrative: 45-year-old male with a past medical history including anxiety presenting to the emergency department today with feelings of lightheadedness, dizziness. States that he was not feeling well throughout the day and went to bed early. His woke him up from sleep dizzy for a take his nightly medications and he got up suddenly, felt the blood pressure from his face, felt diaphoretic blurry vision and dizzy and had to sit down. Did not lose consciousness but called EMS for concerns. Symptoms resolved and patient only is complaining of some pressure in his head that he states happens whenever he gets anxious. States he has a lot of stressors in his life which are not new. Denies any traumatic injuries. No chest pain, pressure, nausea, vomiting, headache, vision changes, abdominal pain, back pain, fever, chills. No shaking or seizure activity. No full loss of consciousness reported. He feels better after lying down the stretcher in getting some minimal fluids so far by EMS. Patient is not any acute distress and has a benign physical examination. Vital signs do show soft blood pressure 105/43 and a pulse of 49 both which improved without any interventions on recheck. Blood pressure 119/61 heart rate 57. No fever or hypoxemia. Suspect vasovagal event versus orthostatic presyncope and dehydration. Low suspicion cardiac abnormality, acute electrolyte imbalances or intracranial pathology. CT of the head was ordered, EKG, chest x-ray and basic labs as well as thyroid studies ordered. Workup shows no leukocytosis or significant anemia. Normal platelet count. Electrolytes show a sodium 132 consistent with some dehydration. Normal kidney function. Normal unremarkable glucose and LFTs. Normal magnesium. TSH mildly elevated but reflex T4 and T3 is normal, subclinical and likely reactive to any recent viral illness he may have had. Patient's troponin is negative. EKG is normal. Head CT unremarkable and chest x-ray normal. Vital signs are all normal eyes. Patient likely had some orthostasis from dehydration and felt better after fluids. Remained asymptomatic during his observation here in the ED and safe for discharge home at this time. Medical Records Attestation: I reviewed the patient's medical records. Lab Data Attestation: I reviewed the patient's lab results. 08/29/25 22:35 08/29/25 22:35 Labs: Lab Results 08/29/25 Range/Units 22:35 WBC 6.8 (4.5-10.0) K/mm3 RBC 4.34 L (4.6-6.20) M/mm3 Hgb 13.3 L (14.0-18.0) g/dL Hct 40.5 L (42.0-52.0) % MCV 93.3 (80-100) fl MCH 30.6 (26-34) pg MCHC 32.8 (32-36) g/dl RDW 12.6 (11.5-14.5) % Plt Count 290 (150-375) k/mm3 MPV 9.0 (7.4-10.4) fl Immature Gran % (Auto) 0.3 (0-0.5) % Neut % (Auto) 57.2 (45.5-73.1) % Lymph % (Auto) 28.2 (18.3-44.2) % [place] % (Auto) 9.6 H (2.6-8.5) % Eos % (Auto) 3.4 (0-4.4) % Baso % (Auto) 1.3 H (0.2-1.2) % Lymph # (Auto) 1.91 (0.9-3.2) K/mm3 [place] # (Auto) 0.7 H (0.1-0.6) K/mm3 Eos # (Auto) 0.2 (0-0.3) K/mm3 Baso # (Auto) 0.1 (0.0-0.1) K/mm3 Abs Immat Gran (auto) 0.02 (0.00-0.031) K/mm3 Absolute Neuts (auto) 3.9 (1.3-6.7) K/mm3 Absolute Nucleated RBC 0.000 (0.0-0.012) K/mm3 Nucleated RBC % 0.0 (0.0-0.2) % Sodium 132 L (137-145) mmol/L Potassium 3.8 (3.4-5.0) mmol/L Chloride 101 (98-107) mmol/L Carbon Dioxide 23 (22-30) mmol/L Anion Gap 8 (4-12) mmol/L BUN 20 (9-20) mg/dL Creatinine 0.95 (0.7-1.3) mg/dL Estim Creat Clear Calc 92 ml/min Estimated GFR > 60 (59 - ) Glucose 132 H (65-110) mg/dL Calcium 8.2 L (8.4-10.2) mg/dL Magnesium 2.2 (1.6-2.3) mg/dL Total Bilirubin 0.3 (0.2-1.3) mg/dL AST 27 (17-59) U/L ALT 19 (6-50) U/L Alkaline Phosphatase 42 (38-126) U/L Troponin I < 0.012 (0.000-0.034) ng/mL Total Protein 6.9 (6.3-8.2) g/dL Albumin 4.2 (3.5-5.1) g/dL TSH (Reflex) 5.130 H (0.465-4.68) uIU/mL Free T4 0.90 (0.78-2.19) ng/dL Total T3 1.06 (0.82-1.58) NG/ML Imaging Data Attestation: I personally reviewed and interpreted this imaging study as follows: My impression: Unremarkable chest x-ray and CT of the head Discharge Plan Discharge Clinical Impression: Orthostatic hypotension, Dehydration, mild Patient Disposition: Home Condition: Stable Instructions: Antibiotic Form Additional Instructions: Your laboratory studies are all reassuring aside from a slightly low sodium secondary to dehydration and a TSH that was mildly elevated but your T3 and T4 are within normal range, this is subclinical and does not require any treatment. Head CT, EKG and chest x-ray all normal. Follow-up with your primary care provider. Return with any emergent concerns or recurrent symptoms. Patient Language: Haitian Follow-up/Referrals: PHYSICIAN,AGRICULTURAL [employer] F[employer] MANAGER [Primary Care Provider, Internal Medicine] Time of Disposition: 02:20
[2025-08-29 23:03] LABS: Alanine Aminotransferase 19 U/L (6-50); Albumin Level 4.2 g/dL (3.5-5.1); Alkaline Phosphatase 42 U/L (38-126); Anion Gap 8 mmol/L (4-12); Aspartate Amino Transferase 27 U/L (17-59); Bilirubin,Total 0.3 mg/dL (0.2-1.3); Blood Urea Nitrogen 20 mg/dL (9-20); Calcium 8.2 mg/dL (8.4-10.2); Carbon Dioxide 23 mmol/L (22-30); Chloride 101 mmol/L (98-107); Estimated CRCL calculation 92 ml/min; Estimated Glomerular Filt Rate > 60; Glucose 132 mg/dL (65-110); Potassium 3.8 mmol/L (3.4-5.0); Sodium 132 mmol/L (137-145); Total Protein 6.9 g/dL (6.3-8.2)
[2025-08-29 23:05] LABS: Magnesium 2.2 mg/dL (1.6-2.3)
[2025-08-29 23:18] LABS: Troponin I < 0.012 ng/mL (0.000-0.034)
[2025-08-29 23:36] LABS: Thyroid Stimulating Hormone Reflex 5.130 uIU/mL (0.465-4.68)
[2025-08-30] VITALS (18 sets, daily range): BP systolic 118–128; BP diastolic 46–67; PULSE 60–77; RESP 12–23; O2SAT 96–100
--- NOTE | 2025-08-30 01:04 | PC.NURSE ---
pt updated that we are still waiting on cxr to result and Labs
[2025-08-30 01:22] LABS: Free T4 Free Thyroxine Reflex 0.90 ng/dL (0.78-2.19)
[2025-08-30 02:17] LABS: Total Triiodothyronine (T3) 1.06 NG/ML (0.82-1.58)
== END 2025-08-30 02:37 | disposition home or self-care (01) ==
PROVIDERS: Emergency Provider Student in an Organized Health Care Education/Training Program
DX: I95.1 Orthostatic hypotension (principal); E86.0 Dehydration; R61 Generalized hyperhidrosis
CPT/HCPCS: 36415; 70450; 71046; 80053; 83735; 84439; 84443; 84480; 84484; 85025; 93005; 96360; 99284; J7120